=== PATIENT | male | born 1970 | race Two or more races ===

== ENCOUNTER 2017-07-15 07:13 | Outpatient (CLI) | payer OTHER ==
[~2017-07-15 07:13] MED LIST: AMOX1TAB12 PO; CIPRO500 MG PO; COZAAR25 MG; INTESTINEX1 CA1 PO; LEVSIN/SL0.125 MG PO; MUCINEX1200 MG/BO PO; NASONEX17 GM NS; PREVACID30 MG PO; PRILOSEC40 MG; PYRIDIUM200 MG PO; REGLAN; TOPROL XL25 M1; TUSSIONEX PENNKI5 ML PO; ULTRACET PO; ZANTAC300 MG; ZOVIRAX400 M1 PO; ZYRTEC10 MG PO
== END 2017-07-15 07:22 | disposition home or self-care (01) ==
LOC: RAD 07:13
DX: J98.4 Other disorders of lung (principal)

== ENCOUNTER 2019-09-09 08:31 | Outpatient (CLI) | payer OTHER | END 2019-09-09 08:49 | disposition home or self-care (01) | LOC: RAD 08:31 | DX: M25.511 Pain in right shoulder (principal); M25.512 Pain in left shoulder ==

== ENCOUNTER → 2019-10-22 | Outpatient (CLI) | payer OTHER | END | disposition home or self-care (01) | LOC: NUCLEAR 07:51 | DX: R07.89 Other chest pain (principal); R94.31 Abnormal electrocardiogram [ECG] [EKG] | CPT/HCPCS: A9500; 78452; 93017 ==

== ENCOUNTER → 2021-01-19 07:56 | Outpatient (CLI) | payer OTHER | END | disposition home or self-care (01) | LOC: NUCLEAR 07:00 | PROVIDERS: ATTEND Internal Medicine Cardiovascular Disease | DX: R07.89 Other chest pain (principal) | CPT/HCPCS: 78452; 93017; A9500 ==

== ENCOUNTER 2021-06-13 08:04 | Outpatient (CLI) | payer OTHER | END 2021-06-13 08:31 | disposition home or self-care (01) | LOC: SONOGRAMA 08:04 | PROVIDERS: ATTEND Urology | DX: N20.0 Calculus of kidney (principal) ==

== ENCOUNTER 2023-06-13 07:39 | Outpatient (CLI) | payer OTHER | END 2023-06-13 07:40 | disposition home or self-care (01) | LOC: NUCLEAR 07:39 | PROVIDERS: ATTEND Internal Medicine Cardiovascular Disease | DX: I25.118 Atherosclerotic heart disease of native coronary artery with other forms of angina pectoris (principal); I11.9 Hypertensive heart disease without heart failure; E78.2 Mixed hyperlipidemia ==

== ENCOUNTER 2023-06-17 07:09 | Outpatient (CLI) | payer OTHER | END 2023-06-17 07:10 | disposition home or self-care (01) | LOC: NUCLEAR 07:09 | PROVIDERS: ATTEND Internal Medicine | DX: I25.118 Atherosclerotic heart disease of native coronary artery with other forms of angina pectoris (principal); I11.9 Hypertensive heart disease without heart failure; E78.2 Mixed hyperlipidemia ==